=== PATIENT | female | born 1945 | race Caucasian/White ===

== ENCOUNTER 2016-12-06 11:21 | Emergency (ER) | payer OTHER ==
[~2016-12-06] VITALS: Ht 167.6 cm; Wt 99.8 kg
[~2016-12-06 11:21] MED LIST: CEPH500C3 PO; HYZA100T4 PO; LEVO88TA2 PO; LOVA20TA PO; METF500 PO; OMEP20CA5 PO
[2016-12-06 11:28] VITALS: BP 151/65; PULSE 65; RESP 16; TEMP 98; O2SAT 95
[2016-12-06 13:00] VITALS: BP 179/88; PULSE 64; RESP 16; O2SAT 98
[2016-12-06] MEDS ORDERED: SODIUM CHLORIDE 0.9% FLUSH 10 ML FLUSH IV FLUSH PRN (13:15)
[2016-12-06] MEDS ORDERED: CAL-TAB4 PO (13:18)
[2016-12-06] MEDS ORDERED: LOVA20TA PO (13:18)
[2016-12-06] MEDS ORDERED: LOSA100T3 PO (13:18)
[2016-12-06] MEDS ORDERED: LEVO88TA2 PO (13:18)
[2016-12-06] MEDS ORDERED: MULTTAB67 PO (13:18)
[2016-12-06] MEDS ORDERED: OMEP20TA PO (13:18)
--- NOTE | 2016-12-06 13:21 | PD ---
HPI Chief Complaint: Abdominal Pain Time Seen by Provider: 13:04 Travel History International Travel<30 days: No Contact w/Intl Traveler<30days: No Traveled to known affect area: No History of Present Illness HPI The patient was seen and examined in the presence of the nurse. This patient complains of abdominal pain. Location is epigastrium. Severity is moderate. She's had intermittent pains for the last month. It's always worse after eating. However she had some ham and cheese last night and shortly after the pain started and has been continual since then. Denies fever. No alleviating factors. PFSH Past Medical History Cancer: Yes (MELANOMA- right chest wall) High Cholesterol: Yes Diabetes: No (hx of diabetic diet control) Patient Takes Glucophage: No Diminished Hearing: No Diverticulitis: Yes GERD: Yes Glaucoma: No Hepatitis: No Hiatal Hernia: Yes (not repaired) Hypertension: Yes Kidney Stones: Yes Respiratory: No Thyroid Disease: Yes Tetanus Vaccination: Unknown Influenza Vaccination: Yes ?: Not Menopausal: Yes Tubal Ligation: Yes Past Surgical History Abdominal Surgery: Yes (APPY) Appendectomy: Yes Eye Surgery: Yes (cataracts repaired) Gynecologic Surgery: Yes (T.L., HYSTERECTOMY) Hysterectomy: Yes Pacemaker: No Other Surgery: Yes Social History Alcohol Use: No Tobacco Use: Yes (quit 1 yr ago smoked for 50 yrs) Substance Use: No Allergies-Medications (Allergen,Severity, Reaction): Coded Allergies: adhesive (Unverified Allergy, Mild, 12/06/16) SKIN BREAKS OUT Reported Meds & Prescriptions Reported Meds & Active Scripts Active Reported Multiple Vitamin 1 Tab 1 Tab PO DAILY Umer-Citrate Plus Vitamin D (Calcium Citrate-Vitamin D) Unknown Strength Tab Unknown Dose PO DAILY Omeprazole 20 Mg Tab 20 Mg PO DAILY Levothyroxine (Levothyroxine Sodium) 88 Mcg Tab 88 Mcg PO DAILY Lovastatin 20 Mg Tab 20 Mg PO DAILY Losartan-Hydrochlorothiazide 100-12.5 Mg Tab 1 Tab PO DAILY Review of Systems General / Constitutional: No: Fever Eyes: No: Visual changes HENT: No: Headaches Cardiovascular: No: Chest Pain or Discomfort Respiratory: No: Shortness of Breath Gastrointestinal: Positive: Abdominal Pain Genitourinary: No: Dysuria Musculoskeletal: No: Pain Skin: No Rash Neurologic: No: Weakness Psychiatric: No: Depression Endocrine: No: Polydipsia Hematologic/Lymphatic: No: Easy Bruising Physical Exam Narrative GENERAL: Well-nourished, well-developed patient with epigastric pain . SKIN: Focused skin assessment reveals no rash and nodules. Skin is Warm and dry. HEAD: Atraumatic. Normocephalic. EYES: Pupils equal and round. No scleral icterus. No injection or drainage. ENT: No nasal bleeding or discharge. Mucous membranes pink and moist. NECK: Trachea midline. No JVD. CARDIOVASCULAR: Regular rate and rhythm. No murmur appreciated. RESPIRATORY: No accessory muscle use. Clear to auscultation. Breath sounds equal bilaterally. GASTROINTESTINAL: Abdomen soft, epigastrium is tender but no rebound or guarding , nondistended. Hepatic and splenic margins not palpable. MUSCULOSKELETAL: No obvious deformities. No clubbing. No cyanosis. No edema. NEUROLOGICAL: Awake and alert. No obvious cranial nerve deficits. Motor grossly within normal limits. Normal speech. PSYCHIATRIC: Appropriate mood and affect; insight and judgment normal. Data Data Last Documented VS Vital Signs Date Time Temp Pulse Resp B/P (MAP) Pulse Ox O2 Delivery O2 Flow Rate FiO2 12/06/16 13:02 16 12/06/16 13:00 64 179/88 (118) 98 Room Air 12/06/16 11:28 98.0 Orders Orders Complete Blood Count With Diff (12/06/16 13:14) Comprehensive Metabolic Panel (12/06/16 13:14) Lipase (12/06/16 13:14) Prothrombin Time / Inr (Pt) (12/06/16 13:14) Act Partial Throm Time (Ptt) (12/06/16 13:14) Us Abdomen Gallbladder (12/06/16 ) Iv Access Insert/Monitor (12/06/16 13:14) NPO (12/06/16 13:14) Sodium Chloride 0.9% Flush (Ns Flush) (12/06/16 13:15) Electrocardiogram (12/06/16 11:36) Labs Laboratory Tests Test 12/06/16 13:30 White Blood Count 9.4 TH/MM3 Red Blood Count 4.49 MIL/MM3 Hemoglobin 13.2 GM/DL Hematocrit 38.8 % Mean Corpuscular Volume 86.4 FL Mean Corpuscular Hemoglobin 29.4 PG Mean Corpuscular Hemoglobin Concent 34.0 % Red Cell Distribution Width 12.7 % Platelet Count 174 TH/MM3 Mean Platelet Volume 8.7 FL Neutrophils (%) (Auto) 71.5 % Lymphocytes (%) (Auto) 19.9 % Monocytes (%) (Auto) 5.7 % Eosinophils (%) (Auto) 2.3 % Basophils (%) (Auto) 0.6 % Neutrophils # (Auto) 6.7 TH/MM3 Lymphocytes # (Auto) 1.9 TH/MM3 Monocytes # (Auto) 0.5 TH/MM3 Eosinophils # (Auto) 0.2 TH/MM3 Basophils # (Auto) 0.1 TH/MM3 CBC Comment DIFF FINAL Differential Comment Prothrombin Time 11.2 SEC Prothromb Time International Ratio 1.0 RATIO Activated Partial Thromboplast Time 25.8 SEC Blood Urea Nitrogen 15 MG/DL Creatinine 1.00 MG/DL Random Glucose 116 MG/DL Total Protein 7.2 GM/DL Albumin 3.8 GM/DL Calcium Level 9.1 MG/DL Alkaline Phosphatase 88 U/L Aspartate Amino Transf (AST/SGOT) 22 U/L Alanine Aminotransferase (ALT/SGPT) 28 U/L Total Bilirubin 0.6 MG/DL Sodium Level 139 MEQ/L Potassium Level 3.7 MEQ/L Chloride Level 105 MEQ/L Carbon Dioxide Level 28.6 MEQ/L Anion Gap 5 MEQ/L Estimat Glomerular Filtration Rate 55 ML/MIN Lipase 106 U/L MDM Medical Decision Making Medical Screen Exam Complete: Yes Emergency Medical Condition: Yes Medical Record Reviewed: Yes Differential Diagnosis Differential diagnosis includes pancreatitis, biliary colic, hepatitis, GERD, peptic ulcer disease. Narrative Course I have reviewed the patient's electronic medical record. IV placed CBC is normal metabolic profile is normal LFT's are normal lipase is normal I reviewed her abdominal ultrasound which shows no evidence of cholecystitis. There is no gallbladder wall thickening or denny Cholecystic fluid She may have Biliary colic or some other nonspecific epigastric pain but stable for outpatient follow-up Recommend low-fat bland diet and outpatient follow-up with primary care and general surgeon given her multiple stones and postprandial pain could be biliary colic The patient was warned about potential sedation for the medications they will receive on prescription. Diagnosis Primary Impression: Epigastric abdominal pain Additional Impression: Biliary colic Additional Instructions: The patient was advised to follow up with their physician and general surgeon and return if they worsen. The patient was warned about potential sedation for the medications they will receive on prescription. Low-fat bland diet Med/Other Pt SpecificInfo: Prescription(s) given Scripts Oxycodone-Acetaminophen (Percocet) 5-325 mg Tab 1 TAB PO Q6H Y for PAIN, #15 TAB 0 Refills Prov: Maciel Ma MD 12/06/16 Disposition: 01 DISCHARGE HOME Condition: Stable Maciel Ma MD Dec 06, 2016 13:21
[2016-12-06 13:46] LABS: CHLORIDE 105 MEQ/L (98-107); POTASSIUM 3.7 MEQ/L (3.5-5.1); SODIUM (NA) 139 MEQ/L (136-145)
[2016-12-06 13:49] LABS: AUTOMATED NEUTROPHIL # 6.7 TH/MM3 (1.8-7.7); BASOPHIL # 0.1 TH/MM3 (0-0.2); BASOPHIL % 0.6 % (0.0-2.0); EOSINOPHIL # 0.2 TH/MM3 (0-0.4); EOSINOPHIL % 2.3 % (0.0-4.0); HEMATOCRIT 38.8 % (35.0-46.0); LYMPH % 19.9 % (9.0-44.0); LYMPHOCYTE # 1.9 TH/MM3 (1.0-4.8); MEAN CELL VOLUME 86.4 FL (80.0-100.0); MEAN CORPUSCULAR HEMOGLOBIN 29.4 PG (27.0-34.0); MONO % 5.7 % (0.0-8.0); NEUT % 71.5 % (16.0-70.0); PLATELET COUNT 174 TH/MM3 (150-450); RED BLOOD COUNT 4.49 MIL/MM3 (4.00-5.30); RED CELL DISTRIBUTION WIDTH 12.7 % (11.6-17.2); WHITE BLOOD COUNT 9.4 TH/MM3 (4.0-11.0)
[2016-12-06 13:50] LABS: ANION GAP 5 MEQ/L (5-15); BICARBONATE 28.6 MEQ/L (21.0-32.0); BLOOD UREA NITROGEN 15 MG/DL (7-18)
[2016-12-06 13:51] LABS: APTT (PATIENT) 25.8 SEC (24.3-30.1); HEMO FLAGS DIFF FINAL; PROTHROMBIN TIME - PATIENT 11.2 SEC (9.8-11.6)
[2016-12-06 13:53] LABS: ALT (GPT) 28 U/L (10-53); AST (GOT) 22 U/L (15-37); GLOMERULAR FILTRATION RATE 55 ML/MIN (>89)
[2016-12-06 13:54] LABS: TOTAL BILIRUBIN ADULT 0.6 MG/DL (0.2-1.0)
[2016-12-06 13:56] LABS: ALKALINE PHOSPHATASE 88 U/L (45-117)
--- NOTE | 2016-12-06 14:39 | RADRPT ---
EXAM DATE/TIME: 12/06/2016 13:47 [facility] COMPARISON: No previous studies available for comparison. INDICATIONS : Right upper quadrant pain. MEDICAL HISTORY : Hypercholesterolemia. Hypertension. Gastroesophageal reflux disease. Diverticulitis. Diabetes. Melano ma. SURGICAL HISTORY : Appendectomy. Tubal ligation. Hysterectomy. ENCOUNTER: Initial ACUITY: 1 day PAIN SCORE: 5/10 LOCATION: Right upper quadrant MEASUREMENTS: LIVER: 15.8 cm length COMMON DUCT: 6 mm RIGHT KIDNEY: 10.5 x 4.4 x 4.2 cm FINDINGS: LIVER: Normal echotexture without focal lesion or ductal dilatation. COMMON DUCT: No intraluminal mass or stone visualized. GALLBLADDER: Multiple mobile stones with acoustic shadowing. No mural thickening or pericholecystic fluid. Patient did exhibit a positive sonographic Casas sign PANCREAS: The visualized portions are within normal limits. RIGHT KIDNEY: No evidence of hydronephrosis, stone, or mass. CONCLUSION: 1. Cholelithiasis without mural thickening or pericholecystic fluid. 2. Patient did experience a positive sonographic Casas sign. Tray Van MD on December 06, 2016 at 14:07 Board Certified Radiologist. This report was verified electronically.
[2016-12-06] MEDS ORDERED: PERC5TAB12 PO (15:09)
[2016-12-06 15:32] VITALS: BP 151/61
--- NOTE | 2016-12-07 13:33 | EKG ---
Date Performed: 12/06/2016 Time Performed: 11:36:20 PTAGE: 71 years EKG: SINUS BRADYCARDIA BORDERLINE ECG NO PREVIOUS TRACING DOCTOR: Vandana Whiteside Interpretating Date/Time 12/07/2016 13:31:29
== END 2016-12-06 15:30 | disposition home or self-care (01) ==
LOC: PHED 11:21
DX: R10.13 Epigastric pain (principal); I10 Essential (primary) hypertension; K21.9 Gastro-esophageal reflux disease without esophagitis; Z87.891 Personal history of nicotine dependence
CPT/HCPCS: 76705; 80053; 83690; 85025; 85610; 85730; 93005; 99285

== ENCOUNTER → 2016-12-22 | Day surgery (SDC) | payer OTHER ==
[~2016-12-22] MED LIST changes: +ACETAMINOPHEN/HYDROcodone 325 MG/5 MG TAB ONE; +BUPIVACAINE/EPINEPHRINE 0.25% 50 ML VIAL ONE; +CAL-TAB4 PO; -CEPH500C3 PO; -HYZA100T4 PO; +KETOROLAC TROMETHAMINE 30 MG/ML (IVP) VIAL IV PUSH ONE; +LACTATED RINGER'S 1000 ML INJ 1,000 ML ONE; +LOSA100T3 PO; -METF500 PO; +MIDAZOLAM HCL 2 MG/2 ML VIAL ONE; +MORPHINE SULFATE 4 MG/ML INJ ONE; +MULTTAB67 PO; +NEOSTIGMINE 3 MG/3 ML SYR IV ONE; -OMEP20CA5 PO; +OMEP20TA PO; +ONDANSETRON HCL 4 MG/2 ML VIAL IV PUSH ONE; +PERC5TAB12 PO; +PROPOFOL 200 MG/20 ML AMP IV ONE; +ceFAZolin 2 GM PREMIX 50 ML ONE; +metroNIDAZOLE 500 MG INJ 100 ML IV ONE
--- NOTE | 2016-12-22 10:17 | TN ---
cc: LULU HORTON M.D. Corrected: 01/17/2017 DATE OF SURGERY: 12/22/2016 PREOPERATIVE DIAGNOSIS Chronic cholecystitis with cholelithiasis. POSTOPERATIVE DIAGNOSIS Chronic cholecystitis with cholelithiasis. PROCEDURE PERFORMED Laparoscopic cholecystectomy. SURGEON Lulu Horton. ANESTHESIA General endotracheal. COMPLICATIONS None. INDICATION FOR PROCEDURE Ms. Francis is a very pleasant 71-year-old female who was in the emergency department approximately 2 weeks ago with severe right upper quadrant abdominal pain. She was worked up and found to have cholecystitis. Her symptoms improved and she was discharged home and told to follow-up with a surgeon. The patient was seen in the office last week. All of her labs were noted to be normal at the time of her emergency department visit. She was noted to have gallstones and a slightly thickened gallbladder wall with a small amount of fluid, all consistent with acute cholecystitis when she was in the emergency room. She was offered elective cholecystectomy. The risks and benefits of open and laparoscopic cholecystectomy were discussed with her and she was agreeable. DETAILS OF PROCEDURE The patient was identified, brought to the operating room and placed supine on the operating table. After adequate general endotracheal anesthesia was achieved, the abdomen was prepped and draped in a standard surgical fashion. The supraumbilical space was anesthetized with 0.25% Marcaine. A supraumbilical incision was made. Dissection was carried down through subcutaneous tissue to midline fascia. The midline fascia was then incised sharply. A finger was then placed in the peritoneal cavity without difficulty. A blunt balloon trocar was inserted and the abdomen was insufflated to 15 mmHg using CO2 gas. Next, two 5 mm trocars were placed in the right upper quadrant after anesthetizing the skin and subcutaneous tissue with 0.25% Marcaine. Attention was directed to the right upper quadrant where the gallbladder was identified. The gallbladder was noted to be moderately distended. The gallbladder was retracted cephalad. The gallbladder neck was then carefully dissected. The cystic artery and cystic duct were dissected out and clearly visualized in two planes. Once they were confirmed in two planes and seen entering the neck of the gallbladder they were clipped twice proximally, once distally, and then divided. The gallbladder was then dissected out of the hepatic fossa using electrocautery Bovie. The gallbladder was placed into an Endopouch bag and brought out through the supraumbilical port. The gallbladder was inspected and found to contain a large stone. Clips were in place on the cystic duct stump without evidence of leakage of bile. The gallbladder was sent to pathology for analysis. Next, the abdominal cavity was re-visualized. The liver bed was found to be hemostatic. The clips were re-visualized and found to be intact on the cystic artery and cystic duct stump without evidence of leakage of bile or bleeding. 0.25% Marcaine was injected in the operative field. All ports were removed under direct vision. The supraumbilical fascial incision was closed with 0 Vicryl in [id number] fashion. Skin was closed with 4-0 Vicryl. The patient tolerated the procedure well, was awakened and brought to Recovery in stable condition. MD SHARLENE Barraza/PARISA /9:53 AM /10:03 AM KARINA
== END | disposition home or self-care (01) ==
LOC: ESDC 06:38
PROVIDERS: ATTEND Surgery Trauma Surgery
DX: K80.10 Calculus of gallbladder with chronic cholecystitis without obstruction (principal)
CPT/HCPCS: 00790; 47562; 88304; J0690; J1885; J2250; J2270; J2405; J3010; J7120; J2710